=== PATIENT | male | born 1950 | race Two or more races ===

== ENCOUNTER 2017-02-22 12:56 | Outpatient (CLI) | payer MEDICARE, MEDICAID ==
[~2017-02-22 12:56] MED LIST: HYDR-569 PO
[2017-02-22 13:09] VITALS: BP 146/80
== END 2017-02-22 13:50 | disposition home or self-care (01) ==
LOC: ORTHO 12:56
PROVIDERS: ATTEND Nurse Practitioner Family
DX: S92.534A Nondisplaced fracture of distal phalanx of right lesser toe(s), initial encounter for closed fracture (principal); W18.49XA Other slipping, tripping and stumbling without falling, initial encounter; Y93.89 Activity, other specified; Y92.013 Bedroom of single-family (private) house as the place of occurrence of the external cause
CPT/HCPCS: 99211